=== PATIENT | female | born 1980 | race Caucasian/White ===

== ENCOUNTER 2018-11-10 20:00 | Emergency (ER) | payer OTHER ==
[~2018-11-10] VITALS: Ht 142.2 cm; Wt 72.1 kg
[~2018-11-10 20:00] MED LIST: IBUP800T48 PO; METH750T93 PO
[2018-11-10 20:02] VITALS: Ht 142.2 cm; Wt 72.1 kg
[2018-11-10] MEDS ORDERED: ONDANSETRON (ODT) 4 MG TAB ODT STA (20:43)
[2018-11-10] MEDS ORDERED: METHOCARBAMOL 750 MG TAB PO ONE (21:00)
[2018-11-10] MEDS ORDERED: ACETAMINOPHEN 325 MG TAB PO ONE (21:00)
[2018-11-10] MEDS ORDERED: HYDROCODONE/APAP (5/325) TAB PO ONE (21:30)
[2018-11-10 23:10] VITALS: BP 121/88; PULSE 71; RESP 20
== END 2018-11-10 23:11 | disposition home or self-care (01) ==
LOC: FTE 20:00
DX: S60.012A Contusion of left thumb without damage to nail, initial encounter (principal); S90.32XA Contusion of left foot, initial encounter; S79.912A Unspecified injury of left hip, initial encounter; V49.40XA Driver injured in collision with unspecified motor vehicles in traffic accident, initial encounter
CPT/HCPCS: 29125; 70450; 72040; 73130; 73510; 73630; 81025; Z7502; Z7610; 73502